=== PATIENT | male | born 1985 | race Caucasian/White ===

== ENCOUNTER 2016-04-19 08:49 | Outpatient (CLI) | payer OTHER ==
[~2016-04-19] VITALS: Ht 167.6 cm; Wt 65.3 kg
[~2016-04-19 08:49] MED LIST: FERR325T; MULTIVIT; OMEP20TA7 OR; PENTASA; REMICADE; VALI2TAB; diphenhydrAMINE 25 MG CAP PO SCH
[2016-04-19] MEDS ORDERED: inFLIXimab INJECTION 400 MG in NS 210 ML IV ONE (09:00)
[2016-04-19] MEDS ORDERED: NS 1,000 ML IV SCH (09:00)
== END 2016-04-19 12:15 | disposition home or self-care (01) ==
LOC: M INFU 08:49
PROVIDERS: ATTEND Internal Medicine Gastroenterology
DX: K50.90 Crohn's disease, unspecified, without complications (principal); K21.9 Gastro-esophageal reflux disease without esophagitis
CPT/HCPCS: 96413; 96415; J1745

== ENCOUNTER 2016-06-14 08:50 | Outpatient (CLI) | payer OTHER ==
[~2016-06-14] VITALS: Ht 167.6 cm; Wt 65.3 kg
[2016-06-14] MEDS ORDERED: NS 1,000 ML IV SCH (09:00)
[2016-06-14] MEDS ORDERED: inFLIXimab INJECTION 400 MG in NS 210 ML IV ONE (09:00)
== END 2016-06-14 12:00 | disposition home or self-care (01) ==
LOC: M INFU 08:50
PROVIDERS: ATTEND Internal Medicine Gastroenterology
DX: K50.90 Crohn's disease, unspecified, without complications (principal)
CPT/HCPCS: 96413; 96415; J1745

== ENCOUNTER 2016-08-23 09:02 | Outpatient (CLI) | payer OTHER ==
[2016-08-23] MEDS ORDERED: NS 1,000 ML IV SCH (10:00)
[2016-08-23] MEDS ORDERED: inFLIXimab INJECTION 400 MG in NS 210 ML IV ONE (10:00)
[2016-08-23 10:16] LABS: BASO % 0.4 % (0.0-1.0); EOS # 0.1 K/mm3 (0.0-0.50); EOS % 2.3 % (0.0-3.0); LARGE UNSTAINED CELL # 0.2 K/mm3 (0.0-0.4); LARGE UNSTAINED CELL % 3.3 % (0.0-4.0); LYMPH # 1.5 K/mm3 (1.5-6.5); LYMPH % 23.6 % (24.0-44.0); MEAN CORPUSCULAR HEMOGLOBIN 30.2 pg (27.0-33.0); MEAN CORPUSCULAR HGB CONC 35.3 g/dl (32.0-36.5); MEAN CORPUSCULAR VOLUME 85.5 fl (80.0-96.0); MONO # 0.4 K/mm3 (0.0-0.8); MONO % 7.6 % (0.0-5.0); NEUTROPHILS # 3.5 K/mm3 (1.8-7.7); NEUTROPHILS % 62.8 % (36.0-66.0); PLATELET COUNT, AUTOMATED 219 k/mm3 (150-450); RED CELL DISTRIBUTION WIDTH 12.5 % (11.5-14.5); WHITE BLOOD COUNT 5.5 K/mm3 (4.0-10.0)
[2016-08-23 10:50] LABS: ALBUMIN 3.9 GM/DL (3.2-5.2); ALBUMIN/GLOBULIN RATIO 1.22 (1.00-1.93); ALKALINE PHOSPHATASE 82 U/L (45-117); ALT/SGPT 22 U/L (12-78); ANION GAP 6 MEQ/L (8-16); AST/SGOT 15 U/L (15-37); BILIRUBIN,TOTAL 0.9 MG/DL (0.2-1.0); BLOOD UREA NITROGEN 8 MG/DL (7-18); CALCIUM LEVEL 8.7 MG/DL (8.5-10.1); CARBON DIOXIDE LEVEL 29 MEQ/L (21-32); CHLORIDE LEVEL 107 MEQ/L (98-107); CREATININE FOR GFR 0.98 MG/DL (0.70-1.30); GLOMERULAR FILTRATION RATE > 60.0 (>60); GLUCOSE, FASTING 105 MG/DL (70-105); POTASSIUM SERUM 3.7 MEQ/L (3.5-5.1); SODIUM LEVEL 142 MEQ/L (136-145); TOTAL PROTEIN 7.1 GM/DL (6.4-8.2)
[2016-08-23 10:56] LABS: VITAMIN B12 LEVEL 254 PG/ML
[2016-08-23 10:57] LABS: FOLATE 14.3 NG/ML
== END 2016-08-23 12:20 | disposition home or self-care (01) ==
LOC: M INFU 09:02
PROVIDERS: ATTEND Internal Medicine Gastroenterology
DX: K50.80 Crohn's disease of both small and large intestine without complications (principal); Z79.899 Other long term (current) drug therapy

== ENCOUNTER 2016-10-11 12:26 | Outpatient (CLI) | payer OTHER ==
[2016-10-11] MEDS ORDERED: inFLIXimab INJECTION 400 MG in NS 210 ML IV ONE (12:45)
[2016-10-11] MEDS ORDERED: NS 1,000 ML IV SCH (12:45)
== END 2016-10-11 15:35 | disposition home or self-care (01) ==
LOC: M INFU 12:26
PROVIDERS: ATTEND Internal Medicine Gastroenterology
DX: K50.90 Crohn's disease, unspecified, without complications (principal); Z79.899 Other long term (current) drug therapy
CPT/HCPCS: 96413; 96415; J1745

== ENCOUNTER 2017-02-21 13:21 | Outpatient (CLI) | payer OTHER ==
[2017-02-21] MEDS: diphenhydrAMINE 25 MG CAP PO (13:52)
[2017-02-21] MEDS: ACETAMINOPHEN TAB 650MG DOSE (2X325MG) PO (13:52)
[2017-02-21] MEDS: NS 1,000 ML IV (13:53)
[2017-02-21] MEDS: INFLIXIMAB BIOSIMILAR 400 MG in NS 210 ML IV (14:01)
== END 2017-02-21 16:25 | disposition home or self-care (01) ==
LOC: M INFU 13:21
DX: K50.90 Crohn's disease, unspecified, without complications (principal); Z79.899 Other long term (current) drug therapy
CPT/HCPCS: 96413

== ENCOUNTER 2017-04-18 11:03 | Outpatient (CLI) | payer OTHER ==
[2017-04-18] MEDS: diphenhydrAMINE 25 MG CAP PO (11:23)
[2017-04-18] MEDS: ACETAMINOPHEN TAB 650MG DOSE (2X325MG) PO (11:23)
[2017-04-18] MEDS: NS 1,000 ML IV (11:29)
[2017-04-18] MEDS: INFLIXIMAB BIOSIMILAR 400 MG in NS 210 ML IV (11:29)
== END 2017-04-18 13:45 | disposition home or self-care (01) ==
LOC: M INFU 11:03
DX: K50.90 Crohn's disease, unspecified, without complications (principal); K21.9 Gastro-esophageal reflux disease without esophagitis; Z79.899 Other long term (current) drug therapy
CPT/HCPCS: Q5102

== ENCOUNTER 2017-06-13 12:34 | Outpatient (CLI) | payer OTHER ==
[2017-06-13] MEDS: ACETAMINOPHEN 650 MG PO PO (12:45)
[2017-06-13] MEDS: NS 1,000 ML IV (12:54)
[2017-06-13] MEDS: DIPHENHYDRAMINE 25 MG (12:54)
[2017-06-13] MEDS: inFLIXimab INJECTION 400 MG in NS 210 ML IV (13:20)
== END 2017-06-13 15:35 | disposition home or self-care (01) ==
LOC: M INFU 12:34
DX: K50.90 Crohn's disease, unspecified, without complications (principal)
CPT/HCPCS: J1745

== ENCOUNTER 2017-08-21 07:53 | Outpatient (CLI) | payer OTHER ==
[2017-08-21] MEDS ORDERED: NS 1,000 ML IV (08:15)
[2017-08-21] MEDS: ACETAMINOPHEN TAB 650MG DOSE (2X325MG) PO (08:15)
[2017-08-21] MEDS ORDERED: FILTER 1.2 MICRON (ADULT TPN/MANNITOL/REMICADE) XX (08:15)
[2017-08-21] MEDS: diphenhydrAMINE 25 MG CAP PO (08:22)
[2017-08-21] MEDS: inFLIXimab INJECTION 400 MG in NS 210 ML IV (08:55)
== END 2017-08-21 11:15 | disposition home or self-care (01) ==
LOC: M INFU 07:53
DX: K50.90 Crohn's disease, unspecified, without complications (principal); Z79.899 Other long term (current) drug therapy
CPT/HCPCS: J1745

== ENCOUNTER 2017-10-16 08:58 | Outpatient (CLI) | payer OTHER ==
[2017-10-16] MEDS: ACETAMINOPHEN TAB 650MG DOSE (2X325MG) PO (09:30)
[2017-10-16] MEDS: diphenhydrAMINE 25 MG CAP PO (09:30)
[2017-10-16] MEDS: NS 1,000 ML IV (09:31)
[2017-10-16] MEDS: inFLIXimab INJECTION 400 MG in NS 210 ML IV (09:33)
[2017-10-16] MEDS: FILTER 1.2 MICRON (ADULT TPN/MANNITOL/REMICADE) XX (09:33)
== END 2017-10-16 12:15 | disposition home or self-care (01) ==
LOC: M INFU 08:58
DX: K50.90 Crohn's disease, unspecified, without complications (principal); Z79.899 Other long term (current) drug therapy
CPT/HCPCS: J1745

== ENCOUNTER 2017-12-11 08:58 | Outpatient (CLI) | payer OTHER ==
[2017-12-11] MEDS: FILTER 1.2 MICRON (ADULT TPN/MANNITOL/REMICADE) XX (09:30)
[2017-12-11] MEDS: NS 1,000 ML IV (09:30)
[2017-12-11] MEDS: ACETAMINOPHEN TAB 650MG DOSE (2X325MG) PO (09:30)
[2017-12-11] MEDS: diphenhydrAMINE 25 MG CAP PO (09:48)
[2017-12-11] MEDS: inFLIXimab INJECTION 400 MG in NS 210 ML IV (09:51)
[2017-12-11 21:37] LABS: VITAMIN B12 LEVEL 404 PG/ML (247-911)
[2017-12-12 12:12] LABS: HEPATITIS B SURFACE ANTIGEN NEGATIVE (NEGATIVE)
[2017-12-14 14:07] LABS: QuantiFERON-TB Gold Plus Negative (Negative)
== END 2017-12-11 12:30 | disposition home or self-care (01) ==
LOC: M INFU 08:58
DX: K50.80 Crohn's disease of both small and large intestine without complications (principal)
CPT/HCPCS: J1745

== ENCOUNTER 2018-02-05 08:57 | Outpatient (CLI) | payer OTHER ==
[2018-02-05] VITALS (8 sets, daily range): BP systolic 108–132; BP diastolic 71–88
[~2018-02-05] VITALS: Ht 167.6 cm; Wt 63.5 kg
[~2018-02-05 08:57] MED LIST changes: -diphenhydrAMINE 25 MG CAP PO SCH
[2018-02-05] MEDS ORDERED: diphenhydrAMINE 50MG PO PRIOR TO INFUSION PO ONE (09:15)
[2018-02-05] MEDS ORDERED: FILTER 1.2 MICRON (ADULT TPN/MANNITOL/REMICADE) XX ONE (09:15)
[2018-02-05] MEDS ORDERED: inFLIXimab INJECTION 400 MG in NS 210 ML IV ONE (09:15)
[2018-02-05] MEDS ORDERED: NS 1,000 ML IV SCH (09:15)
[2018-02-05] MEDS ORDERED: ACETAMINOPHEN 650MG PO PRIOR TO INFUSION PO ONE (09:15)
== END 2018-02-05 12:00 | disposition home or self-care (01) ==
LOC: M INFU 08:57
PROVIDERS: ATTEND Internal Medicine Gastroenterology
DX: K50.90 Crohn's disease, unspecified, without complications (principal)
CPT/HCPCS: 96413; 96415; J1745

== ENCOUNTER 2018-05-28 09:06 | Outpatient (CLI) | payer OTHER ==
[~2018-05-28] VITALS: Ht 165.1 cm; Wt 65.3 kg
[2018-05-28] VITALS (8 sets, daily range): BP systolic 113–124; BP diastolic 66–76
[2018-05-28] MEDS ORDERED: NS 1,000 ML IV SCH (10:00)
[2018-05-28] MEDS ORDERED: diphenhydrAMINE 25MG PO PRIOR TO INFUSION PO ONE (10:00)
[2018-05-28] MEDS ORDERED: inFLIXimab INJECTION 400 MG in NS 210 ML IV ONE (10:00)
[2018-05-28] MEDS ORDERED: ACETAMINOPHEN 650MG PO PRIOR TO INFUSION PO ONE (10:00)
[2018-05-28] MEDS ORDERED: FILTER 1.2 MICRON (ADULT TPN/MANNITOL/REMICADE) XX ONE (10:00)
== END 2018-05-28 12:15 | disposition home or self-care (01) ==
LOC: M INFU 09:06
PROVIDERS: ATTEND Internal Medicine Gastroenterology
DX: K50.90 Crohn's disease, unspecified, without complications (principal)
CPT/HCPCS: 96413; 96415; J1745

== ENCOUNTER 2018-09-17 08:54 | Outpatient (CLI) | payer OTHER ==
[~2018-09-17] VITALS: Ht 167.6 cm; Wt 65.0 kg
[2018-09-17 09:00] VITALS: BP 122/73
[2018-09-17] MEDS ORDERED: diphenhydrAMINE 25MG PO PRIOR TO INFUSION PO ONE (09:30)
[2018-09-17] MEDS ORDERED: FILTER 1.2 MICRON (ADULT TPN/MANNITOL/REMICADE) XX ONE (09:30)
[2018-09-17] MEDS ORDERED: ACETAMINOPHEN 650MG PO PRIOR TO INFUSION PO ONE (09:30)
[2018-09-17] MEDS ORDERED: NS 1,000 ML IV SCH (09:30)
[2018-09-17] MEDS ORDERED: inFLIXimab INJECTION 400 MG in NS 210 ML IV ONE (09:30)
[2018-09-17 09:50] VITALS: BP 99/55
[2018-09-17 11:02] VITALS: BP 105/60
== END 2018-09-17 11:00 | disposition home or self-care (01) ==
LOC: M INFU 08:54
PROVIDERS: ATTEND Internal Medicine Gastroenterology
DX: K50.90 Crohn's disease, unspecified, without complications (principal)
CPT/HCPCS: 96413; J1745

== ENCOUNTER 2018-11-12 09:01 | Outpatient (CLI) | payer OTHER ==
[~2018-11-12] VITALS: Ht 167.6 cm; Wt 65.0 kg
[2018-11-12 09:05] VITALS: BP 109/72
[2018-11-12] MEDS ORDERED: inFLIXimab INJECTION 400 MG in NS 210 ML IV ONE (09:15)
[2018-11-12] MEDS ORDERED: NS 1,000 ML IV SCH (09:15)
[2018-11-12] MEDS ORDERED: FILTER 1.2 MICRON (ADULT TPN/MANNITOL/REMICADE) XX ONE (09:15)
[2018-11-12] MEDS ORDERED: diphenhydrAMINE 25MG PO PRIOR TO INFUSION PO ONE (09:15)
[2018-11-12] MEDS ORDERED: ACETAMINOPHEN 650MG PO PRIOR TO INFUSION PO ONE (09:15)
[2018-11-12 10:45] VITALS: BP 107/71
== END 2018-11-12 11:00 | disposition home or self-care (01) ==
LOC: M INFU 09:01
PROVIDERS: ATTEND Internal Medicine Gastroenterology
DX: K50.90 Crohn's disease, unspecified, without complications (principal)
CPT/HCPCS: 96413; J1745

== ENCOUNTER 2019-01-12 09:01 | Outpatient (CLI) | payer OTHER ==
[~2019-01-12] VITALS: Ht 167.6 cm; Wt 65.0 kg
[2019-01-12 09:00] VITALS: BP 141/73
[2019-01-12 09:45] VITALS: BP 111/69
[2019-01-12] MEDS ORDERED: FILTER 1.2 MICRON (ADULT TPN/MANNITOL/REMICADE) XX ONE (10:00)
[2019-01-12] MEDS ORDERED: NS 1,000 ML IV SCH (10:00)
[2019-01-12] MEDS ORDERED: ACETAMINOPHEN 650MG PO PRIOR TO INFUSION PO ONE (10:00)
[2019-01-12] MEDS ORDERED: diphenhydrAMINE 25MG PO PRIOR TO INFUSION PO ONE (10:00)
[2019-01-12] MEDS ORDERED: inFLIXimab INJECTION 400 MG in NS 210 ML IV ONE (10:00)
[2019-01-12 10:35] VITALS: BP 109/60
[2019-01-12 11:00] VITALS: BP 115/73
== END 2019-01-12 11:00 | disposition home or self-care (01) ==
LOC: M INFU 09:01
PROVIDERS: ATTEND Internal Medicine Gastroenterology
DX: K50.90 Crohn's disease, unspecified, without complications (principal)
CPT/HCPCS: 96413; J1745

== ENCOUNTER 2019-03-09 09:02 | Outpatient (CLI) | payer OTHER ==
[~2019-03-09] VITALS: Ht 167.6 cm; Wt 70.0 kg
[2019-03-09 09:05] VITALS: BP 145/71
[2019-03-09] MEDS ORDERED: diphenhydrAMINE 25MG PO PRIOR TO INFUSION PO ONE (09:15)
[2019-03-09] MEDS ORDERED: NS 1,000 ML IV SCH (09:15)
[2019-03-09] MEDS ORDERED: inFLIXimab INJECTION 400 MG in NS 210 ML IV ONE (09:15)
[2019-03-09] MEDS ORDERED: ACETAMINOPHEN 650MG PO PRIOR TO INFUSION PO ONE (09:15)
[2019-03-09 10:30] VITALS: BP 116/73
[2019-03-09 10:44] VITALS: BP 118/70
== END 2019-03-09 10:50 | disposition home or self-care (01) ==
LOC: M INFU 09:02
PROVIDERS: ATTEND Internal Medicine Gastroenterology
DX: K50.90 Crohn's disease, unspecified, without complications (principal)
CPT/HCPCS: 96413; J1745

== ENCOUNTER 2019-05-04 09:17 | Outpatient (CLI) | payer OTHER ==
[~2019-05-04] VITALS: Ht 167.6 cm; Wt 70.0 kg
[2019-05-04 09:20] VITALS: BP 116/76
[2019-05-04] MEDS ORDERED: NS 1,000 ML IV SCH (10:30)
[2019-05-04] MEDS ORDERED: ACETAMINOPHEN 650MG PO PRIOR TO INFUSION PO ONE (10:30)
[2019-05-04] MEDS ORDERED: diphenhydrAMINE 25MG PO PRIOR TO INFUSION PO ONE (10:30)
[2019-05-04] MEDS ORDERED: inFLIXimab INJECTION 400 MG in NS 210 ML IV ONE (10:30)
[2019-05-04 12:20] VITALS: BP 114/73
== END 2019-05-04 12:20 | disposition home or self-care (01) ==
LOC: M INFU 09:17
PROVIDERS: ATTEND Internal Medicine Gastroenterology
DX: K50.90 Crohn's disease, unspecified, without complications (principal)
CPT/HCPCS: 96365; 96366; J1745

== ENCOUNTER 2019-10-19 08:45 | Outpatient (CLI) | payer OTHER ==
[2019-10-19] VITALS (7 sets, daily range): BP systolic 101–139; BP diastolic 57–84
[~2019-10-19] VITALS: Ht 167.6 cm; Wt 62.1 kg
[2019-10-19] MEDS ORDERED: NS 1,000 ML IV SCH (09:00)
[2019-10-19] MEDS ORDERED: diphenhydrAMINE 25MG PO PRIOR TO INFUSION PO ONE (09:00)
[2019-10-19] MEDS ORDERED: ACETAMINOPHEN 650MG PO PRIOR TO INFUSION PO ONE (09:00)
[2019-10-19] MEDS ORDERED: inFLIXimab INJECTION 400 MG in NS 210 ML IV ONE (09:00)
[2019-10-19] MEDS ORDERED: diphenhydrAMINE 25MG CAP As Ordered ONE (09:04)
== END 2019-10-19 11:15 | disposition home or self-care (01) ==
LOC: M INFU 08:45
PROVIDERS: ATTEND Internal Medicine Gastroenterology
DX: K50.90 Crohn's disease, unspecified, without complications (principal)
CPT/HCPCS: 96413; 96415; J1745

== ENCOUNTER 2019-12-14 08:55 | Outpatient (CLI) | payer OTHER ==
[~2019-12-14] VITALS: Ht 167.6 cm; Wt 62.1 kg
[2019-12-14] VITALS (9 sets, daily range): BP systolic 105–147; BP diastolic 52–97
[2019-12-14] MEDS ORDERED: inFLIXimab INJECTION 400 MG in NS 210 ML IV ONE (09:00)
[2019-12-14] MEDS ORDERED: ACETAMINOPHEN 650MG PO PRIOR TO INFUSION PO ONE (09:00)
[2019-12-14] MEDS ORDERED: NS 1,000 ML IV SCH (09:00)
[2019-12-14] MEDS ORDERED: diphenhydrAMINE 25MG PO PRIOR TO INFUSION PO ONE (09:00)
[2019-12-14 10:12] LABS: HEPATITIS B SURFACE ANTIBODY NEGATIVE (POSITIVE); HEPATITIS B SURFACE ANTIGEN NEGATIVE (NEGATIVE); VITAMIN B12 LEVEL 302 PG/ML (247-911)
== END 2019-12-14 12:10 | disposition home or self-care (01) ==
LOC: M INFU 08:55
PROVIDERS: ATTEND Internal Medicine Gastroenterology
DX: K50.80 Crohn's disease of both small and large intestine without complications (principal)
CPT/HCPCS: 36592; 82607; 86706; 87340; 96413; 96415; J1745

== ENCOUNTER 2020-02-08 10:26 | Outpatient (CLI) | payer OTHER ==
[~2020-02-08] VITALS: Ht 167.6 cm; Wt 63.0 kg
[2020-02-08 10:30] VITALS: BP 137/88
[2020-02-08] MEDS ORDERED: ACETAMINOPHEN 650MG PO PRIOR TO INFUSION PO ONE (10:30)
[2020-02-08] MEDS ORDERED: diphenhydrAMINE 25MG PO PRIOR TO INFUSION PO ONE (10:30)
[2020-02-08] MEDS ORDERED: inFLIXimab INJECTION 400 MG in NS 210 ML IV ONE (10:30)
[2020-02-08] MEDS ORDERED: NS 1,000 ML IV SCH (10:30)
[2020-02-08 11:30] VITALS: BP 118/66
[2020-02-08 12:30] VITALS: BP 110/64
[2020-02-08 13:00] VITALS: BP 104/57
[2020-02-08 13:45] VITALS: BP 129/78
== END 2020-02-08 13:45 | disposition home or self-care (01) ==
LOC: M INFU 10:26
PROVIDERS: ATTEND Internal Medicine Gastroenterology
DX: K50.80 Crohn's disease of both small and large intestine without complications (principal)
CPT/HCPCS: 36592; 86480; 96413; 96415; J1745

== ENCOUNTER 2020-04-04 09:06 | Outpatient (CLI) | payer OTHER ==
[~2020-04-04] VITALS: Ht 167.6 cm; Wt 68.0 kg
[2020-04-04 09:05] VITALS: BP 136/83
[~2020-04-04 09:06] MED LIST changes: +ACETAMINOPHEN TAB 650MG DOSE (2X325MG) PO ONE; +NS 1,000 ML IV SCH; +diphenhydrAMINE 25MG CAP PO ONE; +inFLIXimab INJECTION 400 MG in NS 210 ML IV ONE
[2020-04-04 09:44] VITALS: BP 136/83
[2020-04-04 10:04] VITALS: BP 108/74
[2020-04-04 11:21] VITALS: BP 110/76
[2020-04-04 12:20] VITALS: BP 121/81
== END 2020-04-04 12:20 | disposition home or self-care (01) ==
LOC: M INFU 09:06
PROVIDERS: ATTEND Internal Medicine Gastroenterology
DX: K50.90 Crohn's disease, unspecified, without complications (principal)
CPT/HCPCS: 96413; 96415; J1745

== ENCOUNTER 2020-06-06 09:28 | Outpatient (CLI) | payer OTHER ==
[~2020-06-06] VITALS: Ht 167.6 cm; Wt 68.0 kg
[~2020-06-06 09:28] MED LIST changes: -ACETAMINOPHEN TAB 650MG DOSE (2X325MG) PO ONE; -NS 1,000 ML IV SCH; -diphenhydrAMINE 25MG CAP PO ONE; -inFLIXimab INJECTION 400 MG in NS 210 ML IV ONE
[2020-06-06] MEDS ORDERED: NS 1,000 ML IV SCH (09:30)
[2020-06-06] MEDS ORDERED: INFLIXIMAB BIOSIMILAR 400 MG in NS 210 ML IV ONE (09:30)
[2020-06-06] MEDS ORDERED: diphenhydrAMINE 25MG PO PRIOR TO INFUSION PO ONE (09:30)
[2020-06-06] MEDS ORDERED: ACETAMINOPHEN 650MG PO PRIOR TO INFUSION PO ONE (09:30)
[2020-06-06 09:35] VITALS: BP 137/87
[2020-06-06 10:20] VITALS: BP 117/78
[2020-06-06 10:35] VITALS: BP 119/78
[2020-06-06 10:50] VITALS: BP 120/78
[2020-06-06 12:05] VITALS: BP 128/83
== END 2020-06-06 12:15 | disposition home or self-care (01) ==
LOC: M INFU 09:28
PROVIDERS: ATTEND Internal Medicine Gastroenterology
DX: K50.90 Crohn's disease, unspecified, without complications (principal)
CPT/HCPCS: 96365; 96366; Q5103

== ENCOUNTER 2020-07-25 09:00 | Outpatient (CLI) | payer OTHER ==
[~2020-07-25] VITALS: Ht 167.6 cm; Wt 68.0 kg
[2020-07-25] VITALS (8 sets, daily range): BP systolic 110–132; BP diastolic 72–93
[~2020-07-25 09:00] MED LIST changes: +ACETAMINOPHEN 650MG PO PRIOR TO INFUSION PO ONE; +INFLIXIMAB BIOSIMILAR 400 MG in NS 210 ML IV ONE; +NS 1,000 ML IV SCH; +diphenhydrAMINE 25MG PO PRIOR TO INFUSION PO ONE
[2020-07-25] MEDS ORDERED: INFL100I IV (09:27)
== END 2020-07-25 11:45 | disposition home or self-care (01) ==
LOC: M INFU 09:00
PROVIDERS: ATTEND Internal Medicine Gastroenterology
DX: K50.90 Crohn's disease, unspecified, without complications (principal)
CPT/HCPCS: 96365; 96366; Q5103

== ENCOUNTER 2020-09-19 09:22 | Outpatient (CLI) | payer OTHER ==
[~2020-09-19] VITALS: Ht 167.6 cm; Wt 68.0 kg
[~2020-09-19 09:22] MED LIST changes: +INFL100I IV
[2020-09-19 09:42] VITALS: BP 149/86
[2020-09-19 10:17] VITALS: BP 126/85
[2020-09-19 11:45] VITALS: BP 126/68
== END 2020-09-19 11:45 | disposition home or self-care (01) ==
LOC: M INFU 09:22
PROVIDERS: ATTEND Internal Medicine Gastroenterology
DX: K50.90 Crohn's disease, unspecified, without complications (principal)
CPT/HCPCS: 96365; 96366; Q5103

== ENCOUNTER 2020-11-14 09:14 | Outpatient (CLI) | payer OTHER ==
[~2020-11-14] VITALS: Ht 167.6 cm; Wt 69.4 kg
[~2020-11-14 09:14] MED LIST changes: -diphenhydrAMINE 25MG PO PRIOR TO INFUSION PO ONE
[2020-11-14 09:31] VITALS: BP 128/88
[2020-11-14 10:00] VITALS: BP 116/80
[2020-11-14] MEDS ORDERED: diphenhydrAMINE 25MG CAP PO ONE (10:00)
[2020-11-14 10:30] VITALS: BP 109/70
[2020-11-14 10:52] VITALS: BP 112/62
[2020-11-14 12:15] VITALS: BP 124/80
== END 2020-11-14 12:20 | disposition home or self-care (01) ==
LOC: M INFU 09:14
PROVIDERS: ATTEND Internal Medicine Gastroenterology
DX: K50.90 Crohn's disease, unspecified, without complications (principal)
CPT/HCPCS: 96365; 96366; Q5103

== ENCOUNTER 2021-01-09 08:53 | Outpatient (CLI) | payer OTHER ==
[~2021-01-09] VITALS: Ht 167.6 cm; Wt 68.9 kg
[~2021-01-09 08:53] MED LIST changes: -ACETAMINOPHEN 650MG PO PRIOR TO INFUSION PO ONE; -INFLIXIMAB BIOSIMILAR 400 MG in NS 210 ML IV ONE; -NS 1,000 ML IV SCH
[2021-01-09] MEDS ORDERED: ACETAMINOPHEN 650MG PO PRIOR TO INFUSION PO ONE (09:00)
[2021-01-09] MEDS ORDERED: NS 1,000 ML IV SCH (09:00)
[2021-01-09] MEDS ORDERED: diphenhydrAMINE 25MG PO PRIOR TO INFUSION PO ONE (09:00)
[2021-01-09] MEDS ORDERED: INFLIXIMAB BIOSIMILAR 400 MG in NS 210 ML IV ONE (09:00)
[2021-01-09 09:23] VITALS: BP 115/76
[2021-01-09 10:00] VITALS: BP 109/71
[2021-01-09 11:45] VITALS: BP 142/90
== END 2021-01-09 11:50 | disposition home or self-care (01) ==
LOC: M INFU 08:53
PROVIDERS: ATTEND Internal Medicine Gastroenterology
DX: K50.90 Crohn's disease, unspecified, without complications (principal)
CPT/HCPCS: 96365; 96366; Q5103

== ENCOUNTER 2021-03-06 08:50 | Outpatient (CLI) | payer OTHER ==
[~2021-03-06] VITALS: Ht 167.6 cm; Wt 69.4 kg
[2021-03-06 08:54] VITALS: BP 161/100
[2021-03-06] MEDS ORDERED: diphenhydrAMINE 25MG PO PRIOR TO INFUSION PO ONE (09:00)
[2021-03-06] MEDS ORDERED: NS 1,000 ML IV SCH (09:00)
[2021-03-06] MEDS ORDERED: INFLIXIMAB BIOSIMILAR 400 MG in NS 210 ML IV ONE (09:00)
[2021-03-06] MEDS ORDERED: ACETAMINOPHEN 650MG PO PRIOR TO INFUSION PO ONE (09:00)
[2021-03-06 10:00] VITALS: BP 132/90
[2021-03-06 10:39] VITALS: BP 118/80
[2021-03-06 12:00] VITALS: BP 131/92
== END 2021-03-06 12:00 | disposition home or self-care (01) ==
LOC: M INFU 08:50
PROVIDERS: ATTEND Internal Medicine Gastroenterology
DX: K50.90 Crohn's disease, unspecified, without complications (principal)
CPT/HCPCS: 96365; 96366; Q5103

== ENCOUNTER 2021-05-01 08:49 | Outpatient (CLI) | payer OTHER ==
[~2021-05-01] VITALS: Ht 167.6 cm; Wt 73.4 kg
[2021-05-01] MEDS ORDERED: INFLIXIMAB BIOSIMILAR 400 MG in NS 210 ML IV ONE (09:00)
[2021-05-01] MEDS ORDERED: ACETAMINOPHEN 650MG PO PRIOR TO INFUSION PO ONE (09:00)
[2021-05-01] MEDS ORDERED: NS 1,000 ML IV SCH (09:00)
[2021-05-01 09:03] VITALS: BP 129/95
[2021-05-01 10:45] VITALS: BP 132/81
[2021-05-01 11:00] VITALS: BP 124/74
[2021-05-01 11:30] VITALS: BP 116/70
[2021-05-01 12:30] VITALS: BP 128/80
[2021-05-01 12:59] LABS: HEPATITIS B SURFACE ANTIGEN NEGATIVE (NEGATIVE); VITAMIN B12 LEVEL 412 PG/ML (247-911)
== END 2021-05-01 12:31 | disposition home or self-care (01) ==
LOC: M INFU 08:49
PROVIDERS: ATTEND Internal Medicine Gastroenterology
DX: K50.90 Crohn's disease, unspecified, without complications (principal)
CPT/HCPCS: 36592; 82607; 86480; 87340; 96413; 96415; Q5103

== ENCOUNTER 2021-06-26 09:04 | Outpatient (CLI) | payer OTHER ==
[~2021-06-26] VITALS: Ht 167.6 cm; Wt 73.4 kg
[~2021-06-26 09:04] MED LIST changes: +ACETAMINOPHEN 650MG PO PRIOR TO INFUSION PO ONE; +INFL10VL IV; +INFLIXIMAB BIOSIMILAR 400 MG in NS 210 ML IV ONE; +NS 1,000 ML IV SCH; +OMEP40CA4 PO
[2021-06-26 09:05] VITALS: BP 132/80
[2021-06-26 10:00] VITALS: BP 117/82
[2021-06-26 10:30] VITALS: BP 120/84
[2021-06-26 11:00] VITALS: BP 133/71
[2021-06-26 11:54] VITALS: BP 132/89
== END 2021-06-26 11:55 | disposition home or self-care (01) ==
LOC: M INFU 09:04
PROVIDERS: ATTEND Internal Medicine Gastroenterology
DX: K50.90 Crohn's disease, unspecified, without complications (principal)
CPT/HCPCS: 96413; 96415; Q5103

== ENCOUNTER 2021-08-21 09:10 | Outpatient (CLI) | payer OTHER ==
[~2021-08-21] VITALS: Ht 165.1 cm; Wt 62.7 kg
[2021-08-21 09:10] VITALS: BP 118/76
[2021-08-21 10:13] VITALS: BP 118/61
[2021-08-21 11:15] VITALS: BP 135/90
== END 2021-08-21 11:15 | disposition home or self-care (01) ==
LOC: M INFU 09:10
PROVIDERS: ATTEND Internal Medicine Gastroenterology
DX: K50.919 Crohn's disease, unspecified, with unspecified complications (principal)
CPT/HCPCS: 96413; Q5103

== ENCOUNTER 2021-10-16 08:45 | Outpatient (CLI) | payer OTHER ==
[~2021-10-16] VITALS: Ht 167.6 cm; Wt 73.4 kg
[~2021-10-16 08:45] MED LIST changes: -ACETAMINOPHEN 650MG PO PRIOR TO INFUSION PO ONE; -INFLIXIMAB BIOSIMILAR 400 MG in NS 210 ML IV ONE; -NS 1,000 ML IV SCH
[2021-10-16 08:54] VITALS: BP 133/88
[2021-10-16] MEDS ORDERED: INFLIXIMAB BIOSIMILAR 400 MG in NS 210 ML IV ONE (09:00)
[2021-10-16] MEDS ORDERED: NS 1,000 ML IV SCH (09:00)
[2021-10-16] MEDS ORDERED: ACETAMINOPHEN 650MG PO PRIOR TO INFUSION PO ONE (09:00)
[2021-10-16 11:42] VITALS: BP 127/88
== END 2021-10-16 11:45 | disposition home or self-care (01) ==
LOC: M INFU 08:45
PROVIDERS: ATTEND Internal Medicine Gastroenterology
DX: K50.00 Crohn's disease of small intestine without complications (principal)
CPT/HCPCS: 96413; 96415; Q5103

== ENCOUNTER 2021-12-11 09:15 | Outpatient (CLI) | payer OTHER ==
[~2021-12-11] VITALS: Ht 167.6 cm; Wt 73.4 kg
[~2021-12-11 09:15] MED LIST changes: +ACETAMINOPHEN 650MG PO PRIOR TO INFUSION PO ONE; +INFLIXIMAB BIOSIMILAR 400 MG in NS 210 ML IV ONE; +NS 1,000 ML IV SCH
[2021-12-11 09:20] VITALS: BP 131/84
[2021-12-11 11:10] VITALS: BP 123/80
== END 2021-12-11 11:10 | disposition home or self-care (01) ==
LOC: M INFU 09:15
PROVIDERS: ATTEND Internal Medicine Gastroenterology
DX: K50.90 Crohn's disease, unspecified, without complications (principal)
CPT/HCPCS: 96413; 96415; Q5103

== ENCOUNTER 2022-02-05 09:35 | Outpatient (CLI) | payer OTHER ==
[~2022-02-05] VITALS: Ht 167.6 cm; Wt 66.3 kg
[2022-02-05 09:35] VITALS: BP 140/90
[2022-02-05 10:35] VITALS: BP 120/76
[2022-02-05 11:35] VITALS: BP 128/80
== END 2022-02-05 11:35 | disposition home or self-care (01) ==
LOC: M INFU 09:35
PROVIDERS: ATTEND Internal Medicine Gastroenterology
DX: K50.90 Crohn's disease, unspecified, without complications (principal)
CPT/HCPCS: 96413; Q5103

== ENCOUNTER → 2022-04-12 | Outpatient (CLI) | payer OTHER ==
[~2022-04-12] VITALS: Ht 167.6 cm; Wt 73.4 kg
[~2022-04-12] MED LIST changes: -ACETAMINOPHEN 650MG PO PRIOR TO INFUSION PO ONE
[2022-04-12 09:30] VITALS: BP 110/80
[2022-04-12] MEDS: ACETAMINOPHEN 650MG PO PRIOR TO INFUSION PO ONE ×2 (09:30→09:39)
[2022-04-12 10:00] VITALS: BP 117/74
[2022-04-12 12:35] VITALS: BP 132/78
== END ==
LOC: M INFU 09:27
PROVIDERS: ATTEND Internal Medicine Gastroenterology
DX: K50.90 Crohn's disease, unspecified, without complications (principal)
CPT/HCPCS: 96413; 96415; Q5103

== ENCOUNTER 2022-05-28 09:05 | Outpatient (CLI) | payer OTHER ==
[~2022-05-28] VITALS: Ht 167.6 cm; Wt 74.0 kg
[~2022-05-28 09:05] MED LIST changes: +ACETAMINOPHEN 650MG PO PRIOR TO INFUSION PO ONE
[2022-05-28 09:30] VITALS: BP 134/80
[2022-05-28 09:45] VITALS: BP 137/78
[2022-05-28 10:00] VITALS: BP 134/77
[2022-05-28 11:22] VITALS: BP 135/90
== END 2022-05-28 11:23 | disposition home or self-care (01) ==
LOC: M INFU 09:05
PROVIDERS: ATTEND Internal Medicine Gastroenterology
DX: K50.90 Crohn's disease, unspecified, without complications (principal)
CPT/HCPCS: 96413; 96415; Q5103

== ENCOUNTER 2022-07-23 08:50 | Outpatient (CLI) | payer OTHER ==
[~2022-07-23] VITALS: Ht 167.6 cm; Wt 65.0 kg
[~2022-07-23 08:50] MED LIST changes: -ACETAMINOPHEN 650MG PO PRIOR TO INFUSION PO ONE; -INFLIXIMAB BIOSIMILAR 400 MG in NS 210 ML IV ONE; -NS 1,000 ML IV SCH
[2022-07-23] MEDS ORDERED: INFLIXIMAB BIOSIMILAR 400 MG in NS 210 ML IV ONE (09:00)
[2022-07-23] MEDS ORDERED: ACETAMINOPHEN 650MG PO PRIOR TO INFUSION PO ONE (09:00)
[2022-07-23] MEDS ORDERED: NS 1,000 ML IV SCH (09:00)
[2022-07-23 09:42] VITALS: BP 136/74
[2022-07-23 10:30] VITALS: BP 125/84
== END 2022-07-23 10:30 | disposition home or self-care (01) ==
LOC: M INFU 08:50
PROVIDERS: ATTEND Internal Medicine Gastroenterology
DX: K50.90 Crohn's disease, unspecified, without complications (principal)
CPT/HCPCS: 36592; 86480; 87340; 96413; Q5103

== ENCOUNTER 2022-09-17 09:00 | Outpatient (CLI) | payer OTHER ==
[~2022-09-17] VITALS: Ht 167.6 cm; Wt 65.4 kg
[~2022-09-17 09:00] MED LIST changes: +ACETAMINOPHEN 650MG PO PRIOR TO INFUSION PO ONE; +CURRENT HEIGHT AND WEIGHT NEEDED ON PATIENT XX SCH; +INFLIXIMAB BIOSIMILAR 400 MG in NS 210 ML IV ONE; +NS 1,000 ML IV SCH
[2022-09-17 09:03] VITALS: BP 134/80; TEMP 97; O2SAT 100
[2022-09-17] MEDS ORDERED: INFLIXIMAB BIOSIMILAR 400 MG in NS 210 ML IV ONE (09:30)
[2022-09-17 10:29] VITALS: BP 126/84; O2SAT 98
== END 2022-09-17 10:40 ==
LOC: M INFU 09:00
PROVIDERS: ATTEND Internal Medicine Gastroenterology
DX: K50.90 Crohn's disease, unspecified, without complications (principal)
CPT/HCPCS: 96413; Q5103

== ENCOUNTER 2022-11-12 09:15 | Outpatient (CLI) | payer OTHER ==
[~2022-11-12] VITALS: Ht 167.6 cm; Wt 63.1 kg
[2022-11-12 09:15] VITALS: BP 90/42; O2SAT 100
[~2022-11-12 09:15] MED LIST changes: -CURRENT HEIGHT AND WEIGHT NEEDED ON PATIENT XX SCH
[2022-11-12 10:30] VITALS: BP 124/81; O2SAT 98
[2022-11-12 11:30] VITALS: BP 126/84; O2SAT 100
== END 2022-11-12 11:30 ==
LOC: M INFU 09:15
PROVIDERS: ATTEND Internal Medicine Gastroenterology
DX: K50.90 Crohn's disease, unspecified, without complications (principal)
CPT/HCPCS: 96413; Q5103

== ENCOUNTER 2023-01-23 09:32 | Outpatient (CLI) | payer OTHER ==
[~2023-01-23] VITALS: Ht 167.6 cm; Wt 60.0 kg
[2023-01-23 09:32] VITALS: BP 126/85; TEMP 97.9; O2SAT 96
[~2023-01-23 09:32] MED LIST changes: -ACETAMINOPHEN 650MG PO PRIOR TO INFUSION PO ONE; +ACETAMINOPHEN TAB 650MG DOSE (2X325MG) PO ONE; -INFLIXIMAB BIOSIMILAR 400 MG in NS 210 ML IV ONE
[2023-01-23] MEDS ORDERED: INFLIXIMAB BIOSIMILAR 400 MG in NS 210 ML IV ONE (10:00)
[2023-01-23 11:37] VITALS: BP 134/87; TEMP 97.5; O2SAT 95
== END 2023-01-23 11:37 | disposition home or self-care (01) ==
LOC: M INFU 09:32
PROVIDERS: ATTEND Internal Medicine Gastroenterology
DX: K50.90 Crohn's disease, unspecified, without complications (principal)
CPT/HCPCS: 96413; Q5103

== ENCOUNTER 2023-03-20 09:30 | Outpatient (CLI) | payer OTHER ==
[~2023-03-20] VITALS: Ht 162.6 cm; Wt 64.0 kg
[~2023-03-20 09:30] MED LIST changes: -ACETAMINOPHEN TAB 650MG DOSE (2X325MG) PO ONE; -NS 1,000 ML IV SCH
[2023-03-20 09:45] VITALS: BP 144/85; O2SAT 97
[2023-03-20] MEDS ORDERED: INFLIXIMAB BIOSIMILAR 400 MG in NS 210 ML IV ONE (10:00)
[2023-03-20] MEDS ORDERED: ACETAMINOPHEN 650MG PO PRIOR TO INFUSION PO ONE (10:00)
[2023-03-20] MEDS ORDERED: NS 1,000 ML IV SCH (10:00)
[2023-03-20 11:35] VITALS: BP 104/60; O2SAT 100
== END 2023-03-20 11:35 | disposition home or self-care (01) ==
LOC: M INFU 09:30
PROVIDERS: ATTEND Internal Medicine Gastroenterology
DX: K50.90 Crohn's disease, unspecified, without complications (principal)
CPT/HCPCS: 96413; Q5103

== ENCOUNTER 2023-05-15 09:35 | Outpatient (CLI) | payer OTHER ==
[~2023-05-15] VITALS: Ht 167.6 cm; Wt 63.6 kg
[~2023-05-15 09:35] MED LIST changes: +NS 1,000 ML IV SCH
[2023-05-15 09:54] VITALS: BP 142/89; O2SAT 96
[2023-05-15] MEDS: ACETAMINOPHEN 650MG PO PRIOR TO INFUSION PO ONE (10:27)
[2023-05-15] MEDS: INFLIXIMAB BIOSIMILAR 400 MG in NS 210 ML IV ONE (10:30)
[2023-05-15 10:45] VITALS: BP 114/82; TEMP 97.6; O2SAT 96
[2023-05-15 11:40] VITALS: BP 125/80; O2SAT 99
== END 2023-05-15 11:40 | disposition home or self-care (01) ==
LOC: M INFU 09:35
PROVIDERS: ATTEND Internal Medicine Gastroenterology
DX: K50.919 Crohn's disease, unspecified, with unspecified complications (principal)
CPT/HCPCS: 96413; Q5103

== ENCOUNTER 2023-07-10 09:06 | Outpatient (CLI) | payer OTHER ==
[~2023-07-10] VITALS: Ht 170.2 cm; Wt 111.8 kg
[~2023-07-10 09:06] MED LIST changes: +ACETAMINOPHEN 650MG PO PRIOR TO INFUSION PO ONE
[2023-07-10 09:15] VITALS: BP 137/83; O2SAT 98
[2023-07-10] MEDS: INFLIXIMAB BIOSIMILAR 400 MG in NS 210 ML IV ONE (10:07)
[2023-07-10 10:20] VITALS: BP 119/79; O2SAT 100
== END 2023-07-10 11:20 | disposition home or self-care (01) ==
LOC: M INFU 09:06
PROVIDERS: ATTEND Internal Medicine Gastroenterology
DX: K50.919 Crohn's disease, unspecified, with unspecified complications (principal)
CPT/HCPCS: 96413; Q5103

== ENCOUNTER 2023-09-04 09:05 | Outpatient (CLI) | payer OTHER ==
[~2023-09-04] VITALS: Ht 167.6 cm; Wt 64.5 kg
[2023-09-04 09:05] VITALS: BP 126/81; O2SAT 98
[~2023-09-04 09:05] MED LIST changes: -ACETAMINOPHEN 650MG PO PRIOR TO INFUSION PO ONE
[2023-09-04] MEDS: INFLIXIMAB BIOSIMILAR 400 MG in NS 210 ML IV ONE (09:34)
[2023-09-04] MEDS: ACETAMINOPHEN 650MG PO PRIOR TO INFUSION PO ONE (09:35)
[2023-09-04 10:40] VITALS: BP 119/86; O2SAT 97
== END 2023-09-04 10:50 ==
LOC: M INFU 09:05
PROVIDERS: ATTEND Internal Medicine Gastroenterology
DX: K50.90 Crohn's disease, unspecified, without complications (principal)
CPT/HCPCS: 96365; Q5103

== ENCOUNTER 2023-11-10 08:50 | Outpatient (CLI) | payer OTHER ==
[~2023-11-10] VITALS: Ht 167.6 cm; Wt 62.7 kg
[2023-11-10 08:50] VITALS: BP 131/86; O2SAT 99
[~2023-11-10 08:50] MED LIST changes: -NS 1,000 ML IV SCH
[2023-11-10] MEDS ORDERED: NS 1,000 ML IV SCH (09:00)
[2023-11-10] MEDS ORDERED: ACETAMINOPHEN 650MG PO PRIOR TO INFUSION PO ONE (09:00)
[2023-11-10] MEDS: INFLIXIMAB BIOSIMILAR 400 MG in NS 210 ML IV ONE (09:35)
[2023-11-10 10:04] VITALS: BP 119/80; O2SAT 98
[2023-11-10 10:54] VITALS: BP 124/86; O2SAT 100
== END 2023-11-10 10:55 ==
LOC: M INFU 08:50
PROVIDERS: ATTEND Internal Medicine Gastroenterology
DX: K50.90 Crohn's disease, unspecified, without complications (principal)
CPT/HCPCS: 96365; Q5103

== ENCOUNTER 2024-01-15 12:50 | Outpatient (CLI) | payer OTHER ==
[~2024-01-15] VITALS: Ht 167.6 cm; Wt 62.7 kg
[2024-01-15] MEDS ORDERED: ACETAMINOPHEN 650MG PO PRIOR TO INFUSION PO ONE (13:00)
[2024-01-15] MEDS ORDERED: NS 1,000 ML IV SCH (13:00)
[2024-01-15 13:05] VITALS: BP 143/85; O2SAT 100
[2024-01-15] MEDS: INFLIXIMAB BIOSIMILAR 400 MG in NS 210 ML IV ONE (13:48)
[2024-01-15 14:45] VITALS: BP 120/78; O2SAT 98
== END 2024-01-15 14:48 | disposition home or self-care (01) ==
LOC: M INFU 12:50
PROVIDERS: ATTEND Internal Medicine Gastroenterology
DX: K50.90 Crohn's disease, unspecified, without complications (principal)
CPT/HCPCS: 96365; Q5103

== ENCOUNTER → 2024-03-11 | Outpatient (CLI) | payer OTHER ==
[~2024-03-11] VITALS: Ht 167.6 cm; Wt 63.6 kg
[~2024-03-11] MED LIST changes: +NS (Normal Saline) 0.9% 1,000 ML IV SCH
[2024-03-11 08:50] VITALS: BP 147/84; O2SAT 98
[2024-03-11] MEDS: ACETAMINOPHEN 650MG PO PRIOR TO INFUSION PO ONE (09:19)
[2024-03-11] MEDS: INFLIXIMAB BIOSIMILAR 400 MG in NS 210 ML IV ONE (09:19)
[2024-03-11 10:40] VITALS: BP 141/71; O2SAT 99
== END ==
LOC: M INFU 08:34
PROVIDERS: ATTEND Internal Medicine Gastroenterology
DX: K50.90 Crohn's disease, unspecified, without complications (principal)
CPT/HCPCS: 96365; Q5103

== ENCOUNTER 2024-05-06 08:12 | Outpatient (CLI) | payer OTHER ==
[~2024-05-06] VITALS: Ht 167.6 cm; Wt 65.9 kg
[~2024-05-06 08:12] MED LIST changes: +ACETAMINOPHEN 650MG PO PRIOR TO INFUSION PO ONE; +ALBUTEROL SULFATE 2.5MG/0.5ML INH NEB SOLN INH PRN; +EPINEPHrine INJ 1 MG/ML 1ML AMP IM PRN; +diphenhydrAMINE 50MG/ML VIAL IV PRN; +methylPREDNISolone 125MG 2ML VIAL IV PRN
[2024-05-06 08:15] VITALS: BP 132/85; O2SAT 95
[2024-05-06] MEDS: INFLIXIMAB BIOSIMILAR 400 MG in NS 210 ML IV ONE (09:15)
[2024-05-06 09:37] VITALS: BP 125/76; O2SAT 98
[2024-05-06 10:30] VITALS: BP 118/79; O2SAT 97
== END 2024-05-06 10:30 ==
LOC: M INFU 08:12
PROVIDERS: ATTEND Internal Medicine Gastroenterology
DX: K50.90 Crohn's disease, unspecified, without complications (principal)
CPT/HCPCS: 96413; Q5103

== ENCOUNTER 2024-07-01 08:28 | Outpatient (CLI) | payer OTHER ==
[~2024-07-01] VITALS: Ht 167.6 cm; Wt 66.4 kg
[~2024-07-01 08:28] MED LIST changes: -ACETAMINOPHEN 650MG PO PRIOR TO INFUSION PO ONE; -ALBUTEROL SULFATE 2.5MG/0.5ML INH NEB SOLN INH PRN; -EPINEPHrine INJ 1 MG/ML 1ML AMP IM PRN; -NS (Normal Saline) 0.9% 1,000 ML IV SCH; -diphenhydrAMINE 50MG/ML VIAL IV PRN; -methylPREDNISolone 125MG 2ML VIAL IV PRN
[2024-07-01] MEDS ORDERED: ACETAMINOPHEN 650MG PO PRIOR TO INFUSION PO ONE (08:30)
[2024-07-01] MEDS ORDERED: NS (Normal Saline) 0.9% 1,000 ML IV SCH (08:30)
[2024-07-01 08:35] VITALS: BP 122/83; TEMP 97.4; O2SAT 100
[2024-07-01] MEDS: INFLIXIMAB BIOSIMILAR 400 MG in NS 210 ML IV ONE (09:35)
[2024-07-01 10:35] VITALS: BP 124/77; O2SAT 100
== END 2024-07-01 10:45 | disposition home or self-care (01) ==
LOC: M INFU 08:28
PROVIDERS: ATTEND Internal Medicine Gastroenterology
DX: K50.90 Crohn's disease, unspecified, without complications (principal)
CPT/HCPCS: 96413; Q5103

== ENCOUNTER 2024-08-26 08:17 | Outpatient (CLI) | payer OTHER ==
[~2024-08-26] VITALS: Ht 167.6 cm; Wt 65.0 kg
[~2024-08-26 08:17] MED LIST changes: +NS (Normal Saline) 0.9% 1,000 ML IV SCH
[2024-08-26] MEDS ORDERED: ACETAMINOPHEN 650MG PO PRIOR TO INFUSION PO ONE (08:30)
[2024-08-26] MEDS: INFLIXIMAB BIOSIMILAR 400 MG in NS 210 ML IV ONE (09:46)
[2024-08-26 10:49] VITALS: BP 131/86; O2SAT 100
== END 2024-08-26 10:50 | disposition home or self-care (01) ==
LOC: M INFU 08:17
PROVIDERS: ATTEND Internal Medicine Gastroenterology
DX: K50.90 Crohn's disease, unspecified, without complications (principal)
CPT/HCPCS: 96413; Q5103

== ENCOUNTER 2024-10-21 08:09 | Outpatient (CLI) | payer OTHER ==
[~2024-10-21] VITALS: Ht 167.6 cm; Wt 64.0 kg
[~2024-10-21 08:09] MED LIST changes: -NS (Normal Saline) 0.9% 1,000 ML IV SCH
[2024-10-21 08:15] VITALS: BP 140/91; O2SAT 99
[2024-10-21] MEDS ORDERED: NS (Normal Saline) 0.9% 1,000 ML IV SCH (08:30)
[2024-10-21] MEDS ORDERED: ACETAMINOPHEN 650MG PO PRIOR TO INFUSION PO ONE (08:30)
[2024-10-21] MEDS: INFLIXIMAB BIOSIMILAR 400 MG in NS 210 ML IV ONE (09:22)
[2024-10-21 10:40] VITALS: BP 148/99; O2SAT 99
== END 2024-10-21 10:45 | disposition home or self-care (01) ==
LOC: M INFU 08:09
PROVIDERS: ATTEND Internal Medicine Gastroenterology
DX: K50.90 Crohn's disease, unspecified, without complications (principal)
CPT/HCPCS: 96413; Q5103

== ENCOUNTER → 2024-12-16 | Outpatient (CLI) | payer OTHER ==
[~2024-12-16] VITALS: Ht 167.6 cm; Wt 62.7 kg
[~2024-12-16] MED LIST changes: +ACETAMINOPHEN 650MG PO PRIOR TO INFUSION PO ONE; +NS (Normal Saline) 0.9% 1,000 ML IV SCH
[2024-12-16 08:43] VITALS: BP 152/91; O2SAT 98
[2024-12-16] MEDS: INFLIXIMAB BIOSIMILAR 400 MG in NS 210 ML IV ONE (09:26)
[2024-12-16 09:44] VITALS: BP 134/89; O2SAT 99
[2024-12-16 10:35] VITALS: BP 136/93; O2SAT 99
== END ==
LOC: M INFU 08:30
PROVIDERS: ATTEND Internal Medicine Gastroenterology
DX: K50.90 Crohn's disease, unspecified, without complications (principal)
CPT/HCPCS: 96413; Q5103

== ENCOUNTER 2025-02-10 08:30 | Outpatient (CLI) | payer OTHER ==
[~2025-02-10] VITALS: Ht 165.1 cm; Wt 68.0 kg
[~2025-02-10 08:30] MED LIST changes: -ACETAMINOPHEN 650MG PO PRIOR TO INFUSION PO ONE
[2025-02-10 08:40] VITALS: BP 119/69; O2SAT 96
[2025-02-10] MEDS: INFLIXIMAB BIOSIMILAR 400 MG in NS 210 ML IV ONE (09:23)
[2025-02-10 09:40] VITALS: BP 138/98; TEMP 98; O2SAT 99
[2025-02-10 10:25] VITALS: BP 136/87; O2SAT 99
== END 2025-02-10 10:40 | disposition home or self-care (01) ==
LOC: M INFU 08:30
PROVIDERS: ATTEND Internal Medicine Gastroenterology
DX: K50.90 Crohn's disease, unspecified, without complications (principal)
CPT/HCPCS: 96413; Q5103